=== PATIENT | male | born 1965 | race Asian ===

== ENCOUNTER 2021-08-07 08:53 | Emergency (ER) | payer OTHER ==
[2021-08-07 09:16] VITALS: BMI 26.3
[2021-08-07] MEDS ORDERED: CASIRIVIMAB/IMDEVIMAB 10 ML in SODIUM CHLORIDE 100 ML IVPB ONE (09:42)
[2021-08-07 10:16] LABS: BASO % 0.5 % (0-2.0); HEMATOCRIT 43.8 % (35.4-49); HEMOGLOBIN 14.7 GM/dL (11.7-16.9); LYMPH % 17.4 % (8-40); MCH 32.3 pg (25.7-33.7); MCHC 33.5 g/dl (32.0-35.9); MEAN CELL VOLUME 96.3 fl (80-96); MEAN PLT VOLUME 9.6 fl (7.5-11.1); MONO % 13.6 % (3.8-10.2); NEUT % 68.5 % (42.8-82.8); PLATELET COUNT 286 10^3/uL (134-434); RBC 4.55 M/mm3 (4.00-5.60); RDW 15.7 % (11.9-15.9); WHITE BLOOD COUNT 9.4 K/mm3 (4.0-10.0)
[2021-08-07 10:32] LABS: CHLORIDE 99 mmol/L (98-107)
[2021-08-07 10:34] LABS: ALBUMIN 3.4 g/dl (3.4-5.0)
[2021-08-07 11:37] LABS: ALK PHOS 83 U/L (45-117); BLOOD UREA NITROGEN 17.5 mg/dL (7-18); CALCIUM 8.6 mg/dL (8.5-10.1); CO2 24 mmol/L (21-32); GLUCOSE,RANDOM 221 mg/dL (74-106); SODIUM 121 mmol/L (136-145)
[2021-08-07 12:57] VITALS: TEMP 97.4
[2021-08-07 13:16] VITALS: BP 150/98; PULSE 80
== END 2021-08-07 13:16 | disposition home or self-care (01) ==
LOC: JER 08:53
DX: U07.1 COVID-19 (principal)
CPT/HCPCS: 36415; 80053; 85025; 99284-25; Q0240

== ENCOUNTER 2023-03-31 16:54 | Emergency (ER) | payer OTHER ==
[2023-03-31 17:10] VITALS: BP 175/91; PULSE 86; RESP 20; TEMP 98.2; BMI 26.6
[2023-03-31] MEDS ORDERED: SODIUM CHLORIDE 0.9% 500 ML INFUS.BAG IV ONE (17:14)
[2023-03-31] MEDS ORDERED: KETOROLAC TROMETHAMINE 15 MG/ML VIAL IVPUSH ONE (17:14)
[2023-03-31] MEDS ORDERED: KETOROLAC TROMETHAMINE 15 MG/ML VIAL ONE (17:38)
[2023-03-31 18:01] LABS: HEMATOCRIT 43.7 % (35.4-49); MCH 32.3 pg (25.7-33.7); MCHC 34.3 g/dl (32.0-35.9); MEAN CELL VOLUME 94.1 fl (80-96); MEAN PLT VOLUME 9.4 fl (7.5-11.1); PLATELET COUNT 304.5 10^3/uL (134-434); RBC 4.64 10^6/uL (4.00-5.60); RDW 14.1 % (11.9-15.9); WHITE BLOOD COUNT 9.1 10^3/uL (4.0-10.8)
[2023-03-31 18:15] LABS: ALBUMIN 4.5 g/dl (3.4-5.0); ALK PHOS 62 U/L (45-117); ANION GAP 8 MMOL/L (8-16); BILIRUBIN,TOTAL 0.4 mg/dl (0.2-1); CALCIUM 9.1 mg/dl (8.5-10.1); CHLORIDE 99 mmol/L (98-107); CO2 27 mmol/L (21-32); CREATININE 0.9 mg/dl (0.6-1.3); GLUCOSE,RANDOM 247 mg/dl (74-106); POTASSIUM 4.2 mmol/L (3.5-5.1); SGOT/AST 19.7 U/L (15-37); SGPT/ALT 19.6 U/L (7-52); SODIUM 134 mmol/L (136-145); TOT PROT 7.3 g/dl (6.4-8.2); URIC ACID 5.4 mg/dl (2.6-7.2)
[2023-03-31 19:00] LABS: ERYTHROCYTE SEDIMENTATION RATE 4 mm/hr (0-20)
[2023-04-05 14:09] LABS: BABESIA MICROTI ANTIBODY IGG <1:10 (Neg:<1:10); BABESIA MICROTI ANTIBODY IGM <1:10 (Neg:<1:10)
== END 2023-03-31 20:53 | disposition home or self-care (01) ==
LOC: FER 16:54
PROC: 3E0333Z Introduction of Anti-inflammatory into Peripheral Vein, Percutaneous Approach (ICD-10-PCS; principal; 2023-03-31)
DX: M79.631 Pain in right forearm (principal); M79.652 Pain in left thigh; Z20.822 Contact with and (suspected) exposure to COVID-19
CPT/HCPCS: 0241U-QW; 36415; 80053; 82550; 82930; 84484; 84550; 85027; 85651; 86140; 86618; 86753; 87207; 87798; 93005; 93971; 93971-TC; 99285-25